=== PATIENT | female | born 1990 ===

== ENCOUNTER 2021-10-14 12:32 | Emergency (ER) | payer OTHER ==
[~2021-10-14] VITALS: Ht 149.9 cm; Wt 65.0 kg
[2021-10-14 15:18] LABS: BASO % 0.1 % (0.0-2.0); EOS % 0.1 % (0.0-4.0); GRAN # 8.6 K/mm3 (1.4-6.5); GRAN % 82.5 % (42.2-75.2); HEMOGLOBIN 10.4 g/dl (12.5-16.0); LYMPH # 1.3 K/mm3 (1.2-3.4); LYMPH % 12.3 % (20.0-51.0); MEAN CELL VOLUME 86 fl (80.0-100.0); MEAN CORPUSCULAR HEMOGLOBIN 27 pg (27-31); MEAN CORPUSCULAR HGB CONC 32 g/dl (33.0-37.0); MEAN PLATELET VOLUME 9.2 fl (7.4-10.4); MONO # 0.5 K/mm3 (0.1-0.6); MONO % 4.6 % (1.7-9.3); PLATELET COUNT 270 K/mm3 (130-400); RED BLOOD COUNT 3.83 M/mm3 (4.10-5.30)
[2021-10-14 15:19] LABS: HEMATOCRIT 32.9 % (37.0-47.0)
[2021-10-14 15:31] LABS: COLLECTION METHOD CLEAN CATCH
[2021-10-14 15:36] LABS: ALBUMIN 2.9 gm/dL (3.5-5.0); BILIRUBIN,TOTAL 0.1 mg/dL (0.2-1.2); CALCIUM 8.9 mg/dL (8.4-10.2); CREATININE, serum 0.56 mg/dL (0.57-1.11); POTASSIUM 3.3 mmol/L (3.5-4.5); TOTAL PROTEIN 6.6 gm/dL (6.2-8.1)
[2021-10-14 15:37] LABS: PH 6 (5-8); SQUAMOUS EPITHELIAL 0-2 /hpf (0-10); URINE APPEARANCE Clear (CLEAR/HAZY); URINE BACTERIA None Seen /hpf (NONE SEEN); URINE BLOOD Negative (NEGATIVE); URINE COLOR Straw (YELLOW); URINE GLUCOSE Negative (NEGATIVE); URINE KETONE Negative (NEGATIVE); URINE NITRATE Negative (NEGATIVE); URINE PROTEIN(semi-quant) Negative (NEGATIVE); URINE RBC 0-2 /hpf (0-2); URINE UROBILINOGEN Negative (NEGATIVE)
--- NOTE | 2021-10-14 16:20 | NUR ---
Pt seen in the ED while here for treatment of syncope episode at home. Pt reports she is G3L2 28.4 weeks pt of [facility] practice. Pt denies any contractions, leaking of fluid or vaginal bleeding and reports normal movement. EFM and toco monitor started. This RN remained at bedside during FHR tracing. See flow record for FHR tracing details. Audible and palpable movement noted. No contractions per toco monitor. Information given to ED RN and PA at the bedside.
[2021-10-14 16:56] VITALS: BP 107/61; PULSE 87; TEMP 98
== END 2021-10-14 17:00 | disposition home or self-care (01) ==
LOC: COL.ER 12:32
PROVIDERS: Physician Assistant
DX: O99.342 Other mental disorders complicating pregnancy, second trimester (principal); R55 Syncope and collapse; Z3A.20 20 weeks gestation of pregnancy; Z28.310 Unvaccinated for COVID-19
CPT/HCPCS: J7030